=== PATIENT | male | born 2000 ===

== ENCOUNTER 2023-10-12 12:43 | Outpatient (AMB) | payer OTHER, SELFPAY ==
--- NOTE | 2023-10-12 12:42 | AM.OFFWIN_ITS ---
Intake Vital Signs 10/12/23 12:57 Height 5 ft 6 in Weight 150 lb BMI 24.2 BP 110/76 Blood Pressure Location Lt brachial Position Sitting Pulse 59 Pulse Source Pulse Oximeter Temp 97.7 F Temp Source Temporal Artery Scan Pulse Oximetry (%) 98 Oxygen Delivery Method Room Air Intake Visit Reasons: EST/ neck/joint eczema(lobby) Intake Note: pt is here today neck and joint eczema started 2 weeks ago Patient Tobacco Use Status: Never used Tobacco Allergies No Known Allergies Allergy (Verified 10/12/23 13:06) Do you need a note to return to daycare/school/sports/work: No HPI HPI Comments History of Present Illness Details 23-year-old male complaining of a infect ed rash since he began jujitsu. He has a history of eczema and feels as though his eczema was exacerbated and then got infected. He has lesions on his neck and bilateral arms. PFSH Social History Patient Tobacco Use Status: Never used Tobacco Review of Systems Const All systems reviewed & are unremarkable except as noted in HPI and below Physical Exam Vital Signs: Last Vital Signs Temp 97.7 F 10/12/23 12:57 Pulse 59 10/12/23 12:57 BP 110/76 10/12/23 12:57 Pulse Ox 98 10/12/23 12:57 Oxygen Delivery Method Room Air 10/12/23 12:57 BMI result Body Mass Index 24.2 Const General: healthy appearing and no acute distress Skin Rashes: rashes noted (posterior neck and bilateral arms) Assessment & Plan Assessment & Plan (1) Eczema: Code(s): L30.9 - Dermatitis, unspecified Plan: Antibiotic was ordered to control the MRSA and he requested prednisone for his eczema. He will follow up with his PCP (2) MRSA (methicillin resistant Staphylococcus aureus): Code(s): A49.02 - Methicillin resistant Staphylococcus aureus infection, unspecified site Plan: see plan Plan see plan Medications: New prednisone prednisone 5 mg: take 8 tablets (40 mg) on Day 1; 7 tablets (35 mg) on Day 2; then decrease by 1 tablet every day until finished PO 36 ea 0RF doxycycline hyclate 100 mg PO BID 7 days 14 caps 0RF Coding Level of Care Code Est Pt Level 3 (62198) Diagnoses Eczema L30.9 MRSA (methicillin resistant Staphylococcus aureus) A49.02
[2023-10-12 12:57] VITALS: BP 110/76; PULSE 59; TEMP 36.5; O2SAT 98; BMI 24.2
== END 2023-10-12 14:01 | disposition home or self-care (01) ==
PROVIDERS: Visit Provider Physician Assistant Medical
DX: L30.9 Dermatitis, unspecified (principal); A49.02 Methicillin resistant Staphylococcus aureus infection, unspecified site
CPT/HCPCS: 99213

== ENCOUNTER 2023-11-02 11:47 | Outpatient (AMB) | payer OTHER, SELFPAY ==
[2023-11-02 12:39] VITALS: BP 118/76; PULSE 71; TEMP 36.6; O2SAT 98; BMI 24.2
--- NOTE | 2023-11-02 12:39 | MHC.OFFWIV ---
Intake Vital Signs 11/02/23 12:39 Height 5 ft 6 in Weight 150 lb BMI 24.2 BP 118/76 Blood Pressure Location Rt brachial Position Sitting Pulse 71 Pulse Source Pulse Oximeter Temp 97.8 F Temp Source Temporal Artery Scan Pulse Oximetry (%) 98 Intake Visit Reasons: EST/ patient rash(lobby) Intake Note: pt is here for rash on arms Patient Tobacco Use Status: Never used Tobacco Allergies No Known Allergies Allergy (Verified 11/02/23 12:39) Do you need a note to return to daycare/school/sports/work: Yes HPI EST/ patient rash(lobby) HPI Details This is a 23-year-old male patient who presents today with recurring rash on his left arm. He was seen here on 10/11 for similar rash, which at that time was on bilateral arms. This developed after doing [employer]. He was started on prednisone and doxy for MRSA coverage. He states that rash resolved with treatment, however recently recurred several days ago. He states it is painful, occasionally itchy, and blisters are starting to erupt. Denies any fever, chills, sore throat, headache or spreading of rash. [facility] Social History Patient Tobacco Use Status: Never used Tobacco Review of Systems Const All systems reviewed & are unremarkable except as noted in HPI and below Physical Exam Vital Signs: Last Vital Signs Temp 97.8 F 11/02/23 12:39 Pulse 71 11/02/23 12:39 BP 118/76 11/02/23 12:39 Pulse Ox 98 11/02/23 12:39 BMI result Body Mass Index 24.2 Const General: cooperative, healthy appearing and no acute distress Resp Effort & Inspection: normal respiratory effort Skin Other: left arm with erythematous rash, some vesicular areas, mildly warm to touch, no drainage noted Extrem General: Yes capillary refill normal and Yes no clubbing, cyanosis or edema Psych Appearance: grossly normal Mental Status: mental status grossly normal Speech and movement: Normal speech and movement present Assessment & Plan Assessment & Plan (1) Skin rash: Code(s): R21 - Rash and other nonspecific skin eruption Plan: Rash which originated following participating in [employer] has recurred. Patient did well previously on Doxy and Prednisone prior to rash recurrence. I am going to start him on prednisone and also Clindamycin for MRSA coverage given the nature of the rash. We reviewed indications, use, possible side effects of medication. If he does not improve with treatment or if he develops worsening rash or new symptoms, he should return to the clinic for further evaluation. Patient verbalizes understanding and agrees to plan. Medications: New prednisone Take 4 tabs for two days, then take 3 tabs for two days, then take 2 tabs for two days, then take 1 tab for 2 days. 10 mg PO DAILY 20 tabs 0RF R21 - Rash and other nonspecific skin eruption clindamycin HCl 300 mg PO QID 7 days 28 caps 0RF R21 - Rash and other nonspecific skin eruption Coding Level of Care Code Est Pt Level 4 (96635) Diagnoses Skin rash R21
== END 2023-11-02 13:22 | disposition home or self-care (01) ==
PROVIDERS: Visit Provider Nurse Practitioner Family
DX: R21 Rash and other nonspecific skin eruption (principal)
CPT/HCPCS: 99214

== ENCOUNTER 2023-12-06 12:57 | Outpatient (AMB) | payer OTHER, SELFPAY ==
[2023-12-06 13:24] VITALS: BP 120/76; PULSE 68; TEMP 36.9; O2SAT 98; BMI 24.2
--- NOTE | 2023-12-06 13:24 | MHC.OFFWIV ---
Intake Vital Signs 12/06/23 13:24 Height 5 ft 6 in Weight 150 lb BMI 24.2 BP 120/76 Blood Pressure Location Lt brachial Position Sitting Pulse 68 Pulse Source Pulse Oximeter Temp 98.5 F Temp Source Oral Pulse Oximetry (%) 98 Oxygen Delivery Method Room Air Intake Visit Reasons: EP rash bacterial infection body joints Intake Note: pt is here for rash, patient stated he was given antibiotics and has not gotten better Patient Tobacco Use Status: Never used Tobacco Allergies No Known Allergies Allergy (Verified 12/06/23 13:25) Medication List - Last Reconciled 12/06/23 by Courtney Carey, NICOLAS hydrocortisone 2.5% 1 appl topical BID PRN Do you need a note to return to daycare/school/sports/work: No HPI EP rash bacterial infection body joints HPI Details This note is constructed using voice recognition software. While every effort has been made to ensure accuracy, casing in line feeder errors may have been included. 23-year-old male patient presents for recurrent rash. He has been seen 10/12/2023 and 11/02/2023 for the same. He has been treated with prednisone and doxycycline on his 1st visit, and clindamycin and prednisone on his 2nd visit. He notes each visit the medication seems to improve the situation, however it does return. He notes that this occurs when he is getting hot when he is doing jujitsu, and forearms primarily in the areas that he will sweat such as his cubital fossa, posterior cervical region, forehead. It starts as what he describes as a fluid-filled vesicle, which opens, drains clear liquid, is moderately painful, and has little to no itch. He notes that there is discoloration of the skin surrounding the area, and that seems to respond and discolored further each time that he gets hot. He has no current open lesions, denies fever, chills. [facility] Social History Patient Tobacco Use Status: Never used Tobacco Review of Systems Const All systems reviewed & are unremarkable except as noted in HPI and below Physical Exam Vital Signs: Last Vital Signs Temp 98.5 F 12/06/23 13:24 Pulse 68 12/06/23 13:24 BP 120/76 12/06/23 13:24 Pulse Ox 98 07/02/24 13:24 Oxygen Delivery Method Room Air 12/06/23 13:24 BMI result Body Mass Index 24.2 Const General: cooperative, healthy appearing, comfortable, no acute distress and alert Orientation/consciousness: patient oriented x3 Limitations: no limitations Skin Other: 2 mm round ulceration without discharge to right cubital fossa, no surrounding erythema, or warmth. Fossa with hypopigmentation, flat borders, no erythema, warmth, lesions, discharge otherwise. General skin exam: elasticity normal and turgor normal Lesions: lesion noted Neuro General: patient oriented x3 Psych Appearance: grossly normal Mental Status: mental status grossly normal Speech and movement: Normal speech and movement present Affect: normal affect Assessment & Plan Assessment & Plan (1) Tinea versicolor: Code(s): B36.0 - Pityriasis versicolor Plan: Previous notes reviewed. Absence of open lesions or discharge at this time. Appears to have response to heat and sweat, which would be more consistent with a tinea effect. Advised patient to keep the area clean, dry, using topical steroids prior to exercise as well as use of powder to keep the area dry. Advised follow-up with PCP with ongoing or worsening. Plan See above for full details and plan. Medications: New hydrocortisone 2.5% Apply to rash prior to exercise 1 appl topical BID PRN 20 grams 0RF skin irritation Coding Level of Care Code Est Pt Level 4 (19136) Diagnoses Tinea versicolor B36.0 Time Spent (min) 30
== END 2023-12-06 14:06 | disposition home or self-care (01) ==
PROVIDERS: Visit Provider Registered Nurse
DX: B36.0 Pityriasis versicolor (principal)
CPT/HCPCS: 99214

== ENCOUNTER 2024-02-14 11:08 | Outpatient (AMB) | payer OTHER, SELFPAY ==
--- NOTE | 2024-02-14 11:57 | MHC.OFFWIV ---
Intake Vital Signs 02/14/24 11:58 Height 5 ft 6 in Weight 144 lb BMI 23.2 BP 108/78 Blood Pressure Location Rt brachial Position Sitting Pulse 53 Pulse Source Pulse Oximeter Temp 98.1 F Temp Source Oral Pulse Oximetry (%) 97 Oxygen Delivery Method Room Air Intake Visit Reasons: EP eczema flair up Intake Note: pt c/o eczema flair. Started 5 weeks ago Patient Tobacco Use Status: Never used Tobacco Allergies acetaminophen [From Percocet] Allergy (Intermediate, Verified 02/14/24 12:02) Hives oxycodone [From Percocet] Allergy (Intermediate, Verified 02/14/24 12:02) Hives Medication List - Last Reconciled 02/14/24 by Chandana De Anda MD betamethasone dipropionate 0.05% 1 appl topical DAILY hydrocortisone 2.5% 1 appl topical BID PRN prednisone 10 mg PO DAILY 5 days Do you need a note to return to daycare/school/sports/work: No HPI EP eczema flair up HPI Details Patient is 23-year-old male With longstanding history of eczema Currently using moisturizers and [id number] hydrocortisone cream Patient says that eczema is flaring up and he needs more than that Patient have eczema in the back of his upper body lower extremities and upper extremities I am treating him with prednisone 10 mg for 5 days to control it And then betamethasone cream at night for a week and then every other night and then 2 times a week as needed PFSH Social History Patient Tobacco Use Status: Never used Tobacco Review of Systems Const All systems reviewed & are unremarkable except as noted in HPI and below Physical Exam Vital Signs: Last Vital Signs Temp 98.1 F 02/14/24 11:58 Pulse 53 02/14/24 11:58 BP 108/78 02/14/24 11:58 Pulse Ox 97 02/14/24 11:58 Oxygen Delivery Method Room Air 02/14/24 11:58 BMI result Body Mass Index 23.2 Const General: no acute distress Orientation/consciousness: patient oriented x3 Eyes General: appearance normal, both eyes and all related structures Resp Effort & Inspection: normal respiratory effort and able to speak in complete sentences Skin Other: Eczematous rash upper back cubital upper extremity and lower extremity as well Neuro General: patient oriented x3 Psych Mental Status: mental status grossly normal Assessment & Plan Assessment & Plan (1) Eczema: Code(s): L30.9 - Dermatitis, unspecified Qualifiers: Eczema type: intrinsic Qualified Code(s): L20.84 - Intrinsic (allergic) eczema Plan Patient is 23-year-old male With longstanding history of eczema Currently using moisturizers and [id number] hydrocortisone cream Patient says that eczema is flaring up and he needs more than that Patient have eczema in the back of his upper body lower extremities and upper extremities I am treating him with prednisone 10 mg for 5 days to control it And then betamethasone cream at night for a week and then every other night and then 2 times a week as needed Medications: New betamethasone dipropionate 0.05% 1 appl topical DAILY 45 grams 0RF prednisone 10 mg PO DAILY 5 tabs 0RF 5 days Coding Level of Care Code Est Pt Level 3 (71943) Diagnoses Intrinsic eczema L20.84 Eczema type: intrinsic
[2024-02-14 11:58] VITALS: BP 108/78; PULSE 53; TEMP 36.7; O2SAT 97; BMI 23.2
== END 2024-02-14 12:08 | disposition home or self-care (01) ==
PROVIDERS: Visit Provider Internal Medicine
DX: L20.84 Intrinsic (allergic) eczema (principal)
CPT/HCPCS: 99213

== ENCOUNTER 2024-05-25 13:15 | Outpatient (AMB) | payer OTHER, SELFPAY ==
--- NOTE | 2024-05-25 13:38 | MHC.OFFWIV ---
Intake Vital Signs 05/25/24 13:43 Weight 151 lb BP 120/78 Blood Pressure Location Rt brachial Position Sitting Pulse 64 Pulse Source Pulse Oximeter Pulse Oximetry (%) 98 Oxygen Delivery Method Room Air Intake Visit Reasons: EP ?abscess on neck Intake Note: Patient here for abscess on neck that has been present since Tuesday. Patient Tobacco Use Status: Never used Tobacco Allergies acetaminophen [From Percocet] Allergy (Intermediate, Verified 05/25/24 13:44) Hives oxycodone [From Percocet] Allergy (Intermediate, Verified 05/25/24 13:44) Hives Do you need a note to return to daycare/school/sports/work: No HPI HPI Comments History of Present Illness Details Pt presents with a few days of abscess to posterior neck Has had in past and required drainage He said minimal drainage from this one No medicine aside from topical antibiotic used 09/13 ache, worse with palpation No fever, chills No other complaints PFSH Social History Patient Tobacco Use Status: Never used Tobacco Review of Systems Const Denies chills, Denies fever(s), Denies headache(s) and Denies weakness ENT Denies headache(s), Reports neck pain (ache where abscess/lesion is) and Denies sore throat Musc Reports neck pain (ache where abscess/lesion is) and Denies tingling Skin/Breast Reports lesions (posterior middle of neck) and Reports skin pain Neuro Denies headache(s), Denies tingling and Denies weakness Physical Exam Vital Signs: Last Vital Signs Pulse 64 05/25/24 13:43 BP 120/78 05/25/24 13:43 Pulse Ox 98 05/25/24 13:43 Oxygen Delivery Method Room Air 05/25/24 13:43 General: Non-toxic, NAD. Speaking full sentences. Skin: Warm dry throughout Neck: midline neck near C4/C5 level he has small 0.1-0.2mm pustule with area of 1cm x 0.5cm region under. Slight ttp. No fluctuance. No skin erythema. Eye: EOMI Respiratory: No respiratory distress Cardiac: RRR. No murmur MSK: Full ROM extremities. Neurology: Alert. No aphasia or facial droop. Gait without abnormality Psych: Good mood and affect Assessment & Plan Assessment & Plan (1) Cellulitis: Code(s): L03.90 - Cellulitis, unspecified Qualifiers: Site of cellulitis: neck Qualified Code(s): L03.221 - Cellulitis of neck Plan: Patient seen and evaluated. No drainable abscess at this time Bactrim with food (avoid alcohol) Warm compress QUID Go to ED if any stiff neck, fever, increased pain, difficulty swallowing etc Patient gave verbal understanding and had no additional questions or concerns at time of discharge All questions answered Medications: New sulfamethoxazole-trimethoprim 800-160 mg (Bactrim DS) 1 tab PO BID 14 tabs 0RF Coding Level of Care Code Est Pt Level 3 (20816) Diagnoses Cellulitis of neck L03.221 Site of cellulitis: neck
[2024-05-25 13:43] VITALS: BP 120/78; PULSE 64; O2SAT 98
== END 2024-05-25 13:58 | disposition home or self-care (01) ==
PROVIDERS: Visit Provider Physician Assistant
DX: L03.221 Cellulitis of neck (principal)

== ENCOUNTER 2024-12-03 15:39 | Outpatient (AMB) | payer OTHER, SELFPAY ==
--- OUTSIDE RECORDS SUMMARY | 2024-12-03 15:43 | XMS_ITS | Clinical Summary ---
Author Organization [facility] Address [address] [place] [address] Phone Care Team Providers Care Hvac Installer Name Role Phone Physician, No Pcp Primary Care Provider Unavaila ble Allergies Active Allergy Reactions Criticality Noted Date Comments Oxycodone-Acetaminophen Hives 07/28/2024 Medications methocarbamoL (ROBAXIN) 750 mg tablet Take 1 tablet (750 mg total) by mouth 4 (four) times a day. 12 each 07/28/2024 Active Active Problems No known active problems Social History Tobacco Use Types Packs/Day Years Used Date Smoking Tobacco: Never Assessed Sex and Gender Information Value Date Recorded Sex Assigned at Male 07/28/2024 5:05 PM EST Legal Sex Male 12:19 AM EST Gender Identity Male 07/28/2024 5:05 PM EST Sexual Orientation Straight 07/28/2024 5: 05 PM EST Obstetrics History Last Filed Vital Signs Vital Sign Reading Time Taken Comments Blood Pressure 128/71 07/28/2024 12:51 PM EST Pulse 63 07/28/2024 12:51 PM EST Temperature 36.6 C (97.9 F) 07/28/2024 12:51 PM EST Respiratory Rate 18 07/28/2024 12:51 PM EST Oxygen Saturation 99% 07/28/2024 12:51 PM EST Inhaled Oxygen Concentration - - Weight 65.8 kg (145 lb) 07/28/2024 12:51 PM EST Height 167.6 cm (5' 6 ) 07/28/2024 12:51 PM EST Body Mass Index 23.4 07/28/2024 12:51 PM EST Plan of Treatment Health Maintenance Due Date Last Done Comments HPV Vaccines (1 - Male 3-dos e series) 2017 Meningococcal B Vaccine (1 o f 2 - Standard) 2018 DTaP,Tdap,and Td Vaccines (1 - Tdap) 2021 Hepatitis B Vaccines (1 of 3 - 19+ 3-dose series) 2021 Cholesterol Screening (Lipid Panel) 05/09/2022 Depression Screening 05/09/2022 HIV Screening 05/09/2022 Hepatitis C Screening 05/09/2022 Social Influencers of Health Screening 05/09/2022 COVID-19 Vaccine (1 - 2023-2 5 season) 2024 Influenza Vaccine (Season Ended) 2025 HIB Vaccines Aged Out No longer eligi ble based on patient's age to complete this topic Hepatitis A Vaccines Aged Out No long er eligible based on patient's age to complete this topic IPV Vaccines Aged Out No longer eligi ble based on patient's age to complete this topic MMR Vaccines Aged Out No longer eligi ble based on patient's age to complete this topic Meningococcal ACWY Vaccine Aged Out N o longer eligible based on patient's age to complete this topic Pneumococcal Vaccine: Pediat rics (0 to 5 Years) and At-Risk Patients (6 to 64 Years) Aged Out No longer eligible b ased on patient's age to complete this topic RSV Immunization Patients Un miah 20 months Aged Out No longer eligible b ased on patient's age to complete this topic Varicella Vaccines Aged Out No longer eligible based on patient's age to complete this topic Insurance [employer] Care Teams Hvac Installer Relationship Specialty Start Date End Date Physician, No Pcp PCP - General 07/28/24
--- OUTSIDE RECORDS SUMMARY | 2024-12-03 15:43 | XMS_ITS | Patient Health Record ---
Author Organization [facility] Address [address] [place] [address] Care Team Providers Care Packaging Manager Name Role Phone DEBORAHANA MCGRATH Unavailable [phone] Allergies Allergen (clinical drug ingredient) Drug/Non Drug Allergy documented on EMR Reaction Allergy Type Onset Date Status acetaminophen / oxycodone Percocet rash Drug Allergy Active Reason For Referral No Information Medications Medication SIG (Take, Route, Fr equency, Duration) Notes Start Date End Date Status predniSONE 10 MG 1 tablet Orally Once a day Active Problems Problem Type SNOMED Code ICD Code Onset Dates Problem Status W/U Status Risk Notes Problem Vitamin D deficiency (30128080) Vitamin D deficiency, unspecified (E55.9) Active confirmed Problem Acquired hypothyroidism (694178330) Acquired hypothyroidism (E03.9) Active confirmed Problem Memory loss (R41.3) Active confirmed Problem Dyslipidemia (306621536) Dyslipidemia (E78.5) Active confirmed Encounters Encounter Location Date Provider Diagnosis [facility] [address] [facility] [address] [place] [address] 02/08/2024 ANA NEWMAN Brain fog R41.89 ; Annual physical exam Z00.00 ; Memory loss R41.3 and Vitamin D deficiency, unspecified E55.9 [facility] [address] [facility] [address] [place] [address] 07/30/2024 ANA NEWMAN Assessments Encounter Date Diagnosis (ICD Code) Assessment Notes Treatment Notes Treatment Clinical Notes Section Notes 02/08/2024 Annual physical exam (ICD-10 - Z00.00) Acute Concerns/Problem List: 02/08/2024 Neuro workup thus far unremarkable Of note, some information is being carried forward from prior records for informational purposes only and is being cited so that efficiency, safety and quality of the patient's care is not compromised This note was prepared using voice recognition software and direct typing Please excuse inadvertent parachute crown sewer or typing errors, or uncorrected word substitutions Although every attempt has been made by the provider to proofread this document, occasional misspellings and typographical errors may still be present Due to the previous pandemic, and the use of personal protective equipment (PPE) This may decrease voice recognition accuracy Inadvertent parachute crown sewer errors may occur 02/08/2024 Brain fog (ICD-10 - R41.89) Acute Concerns/Problem List: 02/08/2024 Neuro workup thus far unremarkable Of note, some information is being carried forward from prior records for informational purposes only and is being cited so that efficiency, safety and quality of the patient's care is not compromised This note was prepared using voice recognition software and direct typing Please excuse inadvertent parachute crown sewer or typing errors, or uncorrected word substitutions Although every attempt has been made by the provider to proofread this document, occasional misspellings and typographical errors may still be present Due to the previous pandemic, and the use of personal protective equipment (PPE) This may decrease voice recognition accuracy Inadvertent parachute crown sewer errors may occur 02/08/2024 Memory loss (ICD-10 [...] software and direct typing Please excuse inadvertent parachute crown sewer or typing errors, or uncorrected word substitutions Although every attempt has been made by the provider to proofread this document, occasional misspellings and typographical errors may still be present Due to the previous pandemic, and the use of personal protective equipment (PPE) This may decrease voice recognition accuracy Inadvertent parachute crown sewer errors may occur 02/08/2024 Vitamin D deficiency, [...] software and direct typing Please excuse inadvertent parachute crown sewer or typing errors, or uncorrected word substitutions Although every attempt has been made by the provider to proofread this document, occasional misspellings and typographical errors may still be present Due to the previous pandemic, and the use of personal protective equipment (PPE) This may decrease voice recognition accuracy Inadvertent parachute crown sewer errors may occur Plan Of Treatment Pending Test Test Name Order Date RPR 11/21/2023 MRI : Brain without Contrast 11/21/2023 CBC (COMPLETE BLOOD COUNT) WITH DIFF COMPREHENSIVE METABOLIC PANEL 11/21/2023 LIPID PANEL 11/21/2023 TSH 11/21/2023 VITAMIN B12 11/21/2023 METHYLMALONIC ACID 11/21/2023 VITAMIN D, 1,25 DIHYDROXY LC/MS/MS 11/20 Insurance Providers Payer Name Payer Address Payer Phone Subscriber Number Group Number Insured Name Patient Relationship to Insured Coverage Start Date Coverage End Date Jocelyn GAMBLE [address] [place] [address] [id number] Jefry Silverio Self - patient is the insured Medical (General) History Medical History History ICD Code atopic dermatitis Surgical History Surgery Date(Month/Year) neck abscess 2018
[2024-12-03 15:44] VITALS: BP 110/66; PULSE 70; TEMP 36.7; O2SAT 98; BMI 24.6
--- NOTE | 2024-12-03 15:44 | MHC.OFFWIV ---
Intake Vital Signs 12/03/24 15:44 Height 5 ft 6 in Weight 152 lb 8 oz BMI 24.6 BP 110/66 Blood Pressure Location Lt brachial Position Sitting Pulse 70 Pulse Source Pulse Oximeter Temp 98.1 F Temp Source Oral Pulse Oximetry (%) 98 Oxygen Delivery Method Room Air Intake Visit Reasons: EP-?pink eyes Intake Note: pt presents with gunk in bilateral eyes that is worse in the mornings x2 weeks. denies burning/scratching/pain Patient Tobacco Use Status: Never used Tobacco Allergies acetaminophen (From Percocet) Allergy (Intermediate, Verified 12/03/24 15:49) Hives oxycodone (From Percocet) Allergy (Intermediate, Verified 12/03/24 15:49) Hives Do you need a note to return to daycare/school/sports/work: No HPI HPI Comments History of Present Illness Details History of Present Illness - The patient is a 24-year-old male presenting with symptoms of conjunctivitis. - Reports waking up with itchy and crusty eyes, with crusting on both eyes. - Symptoms include a gritty sensation in the eyes and occasional blurry vision. - Denies wearing contact lenses. - Mild upper respiratory symptoms, including a runny nose and congestion, are present. - He denies ESPAÑ[place], dizziness, cough, sore throat, ear pain, sick contacts, or travel. Physical Exam General: Cooperative, healthy appearing, comfortable, no acute distress and well developed Ears: Hearing grossly normal bilaterally Nose: Normal external nose present. Normal turbinates. Face and sinus: Normal facial exam. No TTP of sinuses bilaterally. Eyes: Appearance abnormal, both eyes with crusting noted. Sclera is pink on the left, white on the right. Conjunctiva is pink, no FB noted. PERRLA bilaterally. Neck: Normal visual inspection and full ROM. No lymphadenopathy noted. Respiratory: Normal respiratory effort and able to speak in complete sentences. Clear to auscultation bilaterally. No w/r/r noted. Cardiovascular: Regular rate and rhythm. Normal S1 and S2. No M/R/G noted. Patient was informed and verbally consented to the use of an ambient scribe for clinic note documentation during this visit. [facility] Social History Patient Tobacco Use Status: Never used Tobacco Review of Systems Const All systems reviewed & are unremarkable except as noted in HPI and below Physical Exam Vital Signs: Last Vital Signs Temp 98.1 F 12/03/24 15:44 Pulse 70 12/03/24 15:44 BP 110/66 12/03/24 15:44 Pulse Ox 98 12/03/24 15:44 Oxygen Delivery Method Room Air 12/03/24 15:44 BMI result Body Mass Index 24.6 Assessment & Plan Assessment & Plan (1) Conjunctivitis: Code(s): H10.9 - Unspecified conjunctivitis Qualifiers: Conjunctivitis type: acute Acute conjunctivitis type: unspecified Laterality: bilateral Qualified Code(s): H10.33 - Unspecified acute conjunctivitis, bilateral Plan Most likely conjunctivitis Plan - Ophthalmic drops prescribed for administration four times daily for four days to both eyes. - Patient advised to wash pillowcases and maintain hand hygiene to prevent infection spread. - follow up with eye doctor Medications: New polymyxin B sulf-trimethoprim 10,000 unit- 1 mg/mL while awake 1 drp ophthalmic-Right QID 10 mL 0RF 5 days Coding Level of Care Code Est Pt Level 3 (41302) Diagnoses Acute conjunctivitis of both eyes, unspecified acute conjunctivitis type H10.33 Conjunctivitis type: acute Acute conjunctivitis type: unspecified Laterality: bilateral
== END 2024-12-03 16:02 | disposition home or self-care (01) ==
PROVIDERS: Visit Provider Physician Assistant Medical
DX: H10.33 Unspecified acute conjunctivitis, bilateral (principal)

== ENCOUNTER → 2024-12-03 15:39 | Outpatient (BNVA) | payer OTHER, SELFPAY | DX: Z13.89 Encounter for screening for other disorder (principal) ==

== ENCOUNTER 2024-12-11 15:26 | Outpatient (AMB) | payer OTHER, SELFPAY ==
[2024-12-11 15:32] VITALS: BP 114/52; PULSE 69; TEMP 36.8; O2SAT 99; BMI 24.5
--- NOTE | 2024-12-11 15:32 | MHC.OFFWIV ---
Intake Vital Signs 12/11/24 15:32 Height 5 ft 6 in Weight 152 lb BMI 24.5 BP 114/52 L Blood Pressure Location Rt brachial Position Sitting Pulse 69 Pulse Source Pulse Oximeter Temp 98.3 F Temp Source Oral Pulse Oximetry (%) 99 Oxygen Delivery Method Room Air Intake Visit Reasons: EP [place] eye did not go away Intake Note: presents with unresolved pink eye bilateral eyes Patient Tobacco Use Status: Never used Tobacco Allergies acetaminophen (From Percocet) Allergy (Intermediate, Verified 12/11/24 15:34) Hives oxycodone (From Percocet) Allergy (Intermediate, Verified 12/11/24 15:34) Hives Do you need a note to return to daycare/school/sports/work: No HPI HPI Comments History of Present Illness Details History of Present Illness - The patient is a 24-year-old male presenting with persistent eye infection. - The eye infection did not resolve with initial antibiotic treatment, with symptoms of gritty sensation, discharge, and crusting in the morning. - There is a history of using antibiotic eye drops without significant improvement, and mild cold symptoms are present. - The patient has been using Benadryl for symptomatic relief, suggesting possible allergic conjunctivitis. - He has no fever, chills CP, SOB, sore throat, or cough. - He has glasses and does wear contacts. Physical Exam General: Cooperative, healthy appearing, comfortable, no acute distress and well developed Orientation: Patient oriented x3 Limitations: No limitations Head: Normal to inspection Ears: Hearing grossly normal bilaterally Nose: Normal external nose present Face and sinus: Normal facial exam Eyes: Sclerae is pink, conjunctivae is pink bilaterally. Tearing noted. No FB noted. PERRLA noted, pupils are 2 mm bilaterally. EOMI noted. Neck: Normal visual inspection and Yes full ROM Respiratory: Normal respiratory effort and able to speak in complete sentences. Clear to auscultation bilaterally Cardiovascular: Regular rate and rhythm. Normal S1 and S2 Patient was informed and verbally consented to the use of an ambient scribe for clinic note documentation during this visit. [facility] Social History Patient Tobacco Use Status: Never used Tobacco Review of Systems Const All systems reviewed & are unremarkable except as noted in HPI and below Physical Exam Vital Signs: Last Vital Signs Temp 98.3 F 12/11/24 15:32 Pulse 69 12/11/24 15:32 BP 114/52 L 12/11/24 15:32 Pulse Ox 99 12/11/24 15:32 Oxygen Delivery Method Room Air 12/11/24 15:32 BMI result Body Mass Index 24.5 Assessment & Plan Assessment & Plan (1) Conjunctivitis: Code(s): H10.9 - Unspecified conjunctivitis Qualifiers: Conjunctivitis type: acute Acute conjunctivitis type: unspecified Laterality: bilateral Qualified Code(s): H10.33 - Unspecified acute conjunctivitis, bilateral Plan Most likely bacterial vs allergic vs viral Plan - Switch to a different medication for the eye infection due to lack of improvement with current treatment. - Consider starting an antihistamine like cetirizine for potential allergic conjunctivitis. - Continue monitoring for any changes in symptoms and adjust treatment as necessary. - follow up with his eye doctor Medications: New cetirizine (All Day Allergy (cetirizine)) 10 mg PO DAILY 30 tabs 0RF erythromycin Apply to left eye 4 times a day while awake 0.5 inches ophthalmic (eye) QID 3.5 grams 0RF Coding Level of Care Code Est Pt Level 3 (50452) Diagnoses Acute conjunctivitis of both eyes, unspecified acute conjunctivitis type H10.33 Conjunctivitis type: acute Acute conjunctivitis type: unspecified Laterality: bilateral
--- OUTSIDE RECORDS SUMMARY | 2024-12-11 15:55 | XMS_ITS | Clinical Summary ---
Author Organization [facility] Address [address] [place] [address] Phone Care Team Providers Care Formula Technician Name Role Phone Physician, No Pcp Primary [...] - 2023-2 5 season) 2024 Influenza Vaccine (#1) 2025 HIB Vaccines Aged Out No longer [...] 5 Years) and At-Risk Patients (6 to 49 Years) Aged Out No longer eligible b ased on patient's age to complete this topic RSV Immunization Patients Un miah 20 months Aged Out No longer eligible b ased on patient's age to complete this topic Varicella Vaccines Aged Out No longer eligible based on patient's age to complete this topic Insurance [employer] Care Teams Formula Technician Relationship Specialty Start Date End Date Physician, No Pcp PCP - General 07/28/24
--- OUTSIDE RECORDS SUMMARY | 2024-12-11 15:55 | XMS_ITS | Patient Health Record ---
Author Organization [facility] Address [address] [place] [address] Care Team Providers Care Manager Drilling Name Role Phone DEBORAHANA MCGRATH Unavailable [phone] Allergies Allergen (clinical drug ingredient) Drug/Non Drug [...] W/U Status Risk Notes Problem Vitamin D deficiency, unspecified (E55.9) Active confirmed Problem Acquired hypothyroidism (338490670) Acquired hypothyroidism (E03.9) Active confirmed Problem Memory loss (23526872) Memory loss (R41.3) Active confirmed Problem Dyslipidemia (944276110) Dyslipidemia (E78.5) Active confirmed Encounters Encounter Location Date Provider Diagnosis [facility] [address] [facility] [address] [place] [address] 02/08/2024 ANA NEWMAN Brain fog R41.89 ; Annual physical exam Z00.00 ; Memory loss R41.3 and Vitamin D deficiency, unspecified E55.9 [facility] [address] [facility] [address] [place] [address] 07/30/2024 ANA NEWMAN Assessments Encounter Date Diagnosis [...] software and direct typing Please excuse inadvertent molecular biology scientist or typing errors, or uncorrected word substitutions Although every attempt has been made by the provider to proofread this document, occasional misspellings and typographical errors may still be present Due to the previous pandemic, and the use of personal protective equipment (PPE) This may decrease voice recognition accuracy Inadvertent molecular biology scientist errors may occur 02/08/2024 Brain fog (ICD-10 [...] software and direct typing Please excuse inadvertent molecular biology scientist or typing errors, or uncorrected word substitutions Although every attempt has been made by the provider to proofread this document, occasional misspellings and typographical errors may still be present Due to the previous pandemic, and the use of personal protective equipment (PPE) This may decrease voice recognition accuracy Inadvertent molecular biology scientist errors may occur 02/08/2024 Memory loss (ICD-10 [...] software and direct typing Please excuse inadvertent molecular biology scientist or typing errors, or uncorrected word substitutions Although every attempt has been made by the provider to proofread this document, occasional misspellings and typographical errors may still be present Due to the previous pandemic, and the use of personal protective equipment (PPE) This may decrease voice recognition accuracy Inadvertent molecular biology scientist errors may occur 02/08/2024 Vitamin D deficiency, [...] software and direct typing Please excuse inadvertent molecular biology scientist or typing errors, or uncorrected word substitutions Although every attempt has been made by the provider to proofread this document, occasional misspellings and typographical errors may still be present Due to the previous pandemic, and the use of personal protective equipment (PPE) This may decrease voice recognition accuracy Inadvertent molecular biology scientist errors may occur Plan Of Treatment Pending [...] Date Coverage End Date Jocelyn GAMBLE [address] [place] [address] [id number] Jefry Silverio Self - patient is the insured Medical (General) History Medical History History ICD Code atopic dermatitis Surgical History Surgery Date(Month/Year) neck abscess 2018
== END 2024-12-11 16:39 | disposition home or self-care (01) ==
PROVIDERS: Visit Provider Physician Assistant Medical
DX: H10.33 Unspecified acute conjunctivitis, bilateral (principal)

== ENCOUNTER 2025-03-07 15:50 | Outpatient (AMB) | payer OTHER, SELFPAY ==
--- OUTSIDE RECORDS SUMMARY | 2024-02-08 11:15 | XMS_ITS ---
Author Organization [facility] [address] Address [address] [place] [address] Care Team Providers Care [employer]pent[employer] Helper Name Role Phone ANA NEWMAN Unavailable [phone] Medications Medication SIG (Take, Route, Fr equency, Duration) Notes Start Date End Date Status predniSONE 10 MG 1 tablet Orally Once a day Active Encounters Encounter Location Date Provider Diagnosis [facility] [address] [address] 02/08/2024 ANA TRENT Brain fog R41.89 ; Annual physical exam Z00.00 ; Memory loss R41.3 and Vitamin D deficiency, unspecified E55.9 Assessments Encounter Date Diagnosis (ICD Code) Assessment Notes Treatment Notes Treatment Clinical Notes Section Notes 02/08/2024 Brain fog (ICD-10 - R41.89) Acute Concerns/Problem List: 02/08/2024 Neuro workup thus far unremarkable Of note, some information is being carried forward from prior records for informational purposes only and is being cited so that efficiency, safety and quality of the patient's care is not compromised This note was prepared using voice recognition software and direct typing Please excuse inadvertent master sheet clerk or typing errors, or uncorrected word substitutions Although every attempt has been made by the provider to proofread this document, occasional misspellings and typographical errors may still be present Due to the previous pandemic, and the use of personal protective equipment (PPE) This may decrease voice recognition accuracy Inadvertent master sheet clerk errors may occur 02/08/2024 Annual physical exam (ICD-10 - Z00.00) Acute Concerns/Problem List: 02/08/2024 Neuro workup thus far unremarkable Of note, some information is being carried forward from prior records for informational purposes only and is being cited so that efficiency, safety and quality of the patient's care is not compromised This note was prepared using voice recognition software and direct typing Please excuse inadvertent master sheet clerk or typing errors, or uncorrected word substitutions Although every attempt has been made by the provider to proofread this document, occasional misspellings and typographical errors may still be present Due to the previous pandemic, and the use of personal protective equipment (PPE) This may decrease voice recognition accuracy Inadvertent master sheet clerk errors may occur 02/08/2024 Memory loss (ICD-10 - R41.3) Acute Concerns/Problem List: 02/08/2024 Neuro workup thus far unremarkable Of note, some information is being carried forward from prior records for informational purposes only and is being cited so that efficiency, safety and quality of the patient's care is not compromised This note was prepared using voice recognition software and direct typing Please excuse inadvertent master sheet clerk or typing errors, or uncorrected word substitutions Although every attempt has been made by the provider to proofread this document, occasional misspellings and typographical errors may still be present Due to the previous pandemic, and the use of personal protective equipment (PPE) This may decrease voice recognition accuracy Inadvertent master sheet clerk errors may occur 02/08/2024 Vitamin D deficiency, unspecified (ICD-10 - E55.9) Acute Concerns/Problem List: 02/08/2024 Neuro workup thus far unremarkable Of note, some information is being carried forward from prior records for informational purposes only and is being cited so that efficiency, safety and quality of the patient's care is not compromised This note was prepared using voice recognition software and direct typing Please excuse inadvertent master sheet clerk or typing errors, or uncorrected word substitutions Although every attempt has been made by the provider to proofread this document, occasional misspellings and typographical errors may still be present Due to the previous pandemic, and the use of personal protective equipment (PPE) This may decrease voice recognition accuracy Inadvertent master sheet clerk errors may occur Plan Of Treatment No Information Progress Notes * Jefry DE LA TORREDOB:2000 (24 yo M)Acc No.[id number]:02/08/2024 CPE Patient: Jefry GRIGGS Provider: Inocencio NEWMAN NP :2000 A ge:23 Y S ex:Male Date:02/08/2024 Address:[address] [place] [address] Subjective: * Chief Complaints: * * HPI: C onstitutional: Patient is here today for Annual CPE Full past medical history, social history, family history, allergies and current medications were reviewed and updated. New patient packet was reviewed which includes PHQ 9 scale for depression screening, social history, family history, medical history, surgical history They are coming to us from previous practice, Pediatrics, Dr Bowden Acute Concerns/Problem List: 02/08/2024 2 yr hx of memory loss/brain fog maternal hx of dementia/vascular dementia No recent COVID illnesses or post-COVID syndrome MRI of the brain without in November 2023 Normal MRI appearance of the brain denies illciit drug use, THC use or other recr use MSE, MOCA non diagnostic Comprehensive labs November 2023 CBC is stable Renal function electrolytes and LFTs are stable Total cholesterol 160, triglycerides 56, HDL 61, LDL 88 Vitamin B12 is 533 TSH 4.8 Vitamin D 67 Methylmalonic acid normal Treponemal antibody negative Health Maintenance/Social Hx not sexually active just finished trade school, [employer] COVID MRNA x 2 Flu 2022 NO TDAP UTD. * ROS: A ll Other Systems: Review of Systems (ROS) A ll others negative except those mentioned in HPI. * Medical History: * Medications: T aking predniSONE 10 MG Tablet 1 tablet Orally Once a day Objective: * Vitals: * Examination: G eneral Examination: GENERAL APPEARANCE: i n no acute distress, well developed, well nourished. H EAD: n ormocephalic, atraumatic. E YES: p upils equal, round, reactive to light and accommodation. E ARS: n ormal. O RAL CAVITY: m ucosa moist. T HROAT: c lear. N VIVI/THYROID: n vivi supple, full range of motion, no cervical lymphadenopathy. S KIN: n o suspicious lesions, warm and dry. H EART: n o murmurs, regular rate and rhythm, S1, S2 normal. L UNGS: c lear to auscultation bilaterally. A BDOMEN: n ormal, bowel sounds present, soft, nontender, nondistended. E XTREMITIES: n o clubbing, cyanosis, or edema. N EUROLOGIC: n onfocal, motor strength normal upper and lower extremities, sensory exam intact. Assessment: * Assessment: 1. A nnual physical exam - Z00.00 (Primary) 2 . B rain fog - R41.89 ? 3 . M sawyer loss - R41.3 4 . V itamin D deficiency, unspecified - E55.9 Acute Concerns/Problem List: 02/08/2024 Neuro workup thus far unremarkable Of note, some information is being carried forward from prior records for informational purposes only and is being cited so that efficiency, safety and quality of the patient's care is not compromised This note was prepared using voice recognition software and direct typing Please excuse inadvertent master sheet clerk or typing errors, or uncorrected word substitutions Although every attempt has been made by the provider to proofread this document, occasional misspellings and typographical errors may still be present Due to the previous pandemic, and the use of personal protective equipment (PPE) This may decrease voice recognition accuracy Inadvertent master sheet clerk errors may occur. Plan: * Treatment: * Procedure Codes: 9 9199 NO SHOW OFFICE VISIT * Images: Billing Information: * Visit Code: * Procedure Codes: 87381 NO SHOW OFFICE VISIT. Care Plan Details* * Electronic signature of ALLAN NEWMAN on 03/07/2025 at 04:52 PM EDT Sign off status: Pending * Provider: Inocencio NEWMAN NP Date: 0 02/08/2024 Generated for Maribel coronado/Davide/Colleen on: 1 04:52 PM EDT History and Physical Notes * HPI (History of Present Illness) Category Sub-Category Detail Notes Category Not es Constitutional Patient is here today for Annual CPE Full past medical history, social history, family history, allergies and current medications were reviewed and updated. New patient packet was reviewed which includes PHQ 9 scale for depression screening, social history, family history, medical history, surgical history They are coming to us from previous practice, Pediatrics, Dr Bowden Acute Concerns/Problem List: 02/08/2024 2 yr hx of memory loss/brain fog maternal hx of dementia/vascular dementia No recent COVID illnesses or post-COVID syndrome MRI of the brain without in November 2023 Normal MRI appearance of the brain denies illciit drug use, THC use or other recr use MSE, MOCA non diagnostic Comprehensive labs November 2023 CBC is stable Renal function electrolytes and LFTs are stable Total cholesterol 160, triglycerides 56, HDL 61, LDL 88 Vitamin B12 is 533 TSH 4.8 Vitamin D 67 Methylmalonic acid normal Treponemal antibody negative Health Maintenance/Social Hx not sexually active just finished trade school, [employer] COVID MRNA x 2 Flu 2022 NO TDAP UTD Examination Category Sub-Category Detail Notes Category Not es General Examination GENERAL APPEARANCE: in no ac marshall distress, well developed, well nourished HEAD: normocephalic, atrau matic EYES: pupils equal, round, reactive to light and accommodation EARS: normal THROAT: clear NECK/THYROID: neck supple, full ra nge of motion, no cervical lymphadenopathy HEART: no murmurs, regular rate and rhythm, S1, S2 normal LUNGS: clear to auscultatio n bilaterally ABDOMEN: normal, bowel sounds present, soft, nontender, nondistended NEUROLOGIC: nonfocal, motor stre ngth normal upper and lower extremities, sensory exam intact SKIN: no suspicious lesion s, warm and dry EXTREMITIES: no clubbing, cyanosi s, or edema ORAL CAVITY: mucosa moist
[2025-03-07 15:52] VITALS: BP 126/66; PULSE 64; TEMP 36.7; O2SAT 97; BMI 25.3
--- NOTE | 2025-03-07 15:52 | MHC.OFFWIV ---
Intake Vital Signs 03/07/25 15:52 Height 5 ft 6 in Weight 157 lb BMI 25.3 BP 126/66 Blood Pressure Location Lt brachial Position Sitting Pulse 64 Pulse Source Pulse Oximeter Temp 98.1 F Temp Source Oral Pulse Oximetry (%) 97 Oxygen Delivery Method Room Air Intake Visit Reasons: EP [place] eye still Intake Note: PT presents with non resolving bilateral pink eye, RT > LT Patient Tobacco Use Status: Never used Tobacco Allergies acetaminophen (From Percocet) Allergy (Intermediate, Verified 03/07/25 15:54) Hives oxycodone (From Percocet) Allergy (Intermediate, Verified 03/07/25 15:54) Hives Medication List - Last Reconciled 03/07/25 by Ita Arriola NP cetirizine (All Day Allergy (cetirizine)) 10 mg PO DAILY Do you need a note to return to daycare/school/sports/work: No HPI HPI Comments History of Present Illness Details 24 Male patient who presents to the walk in clinic with c/o Allergic Conjunctivitis for few Months now. He was seen here 2 times (November/December) for similar problem where he was diagnosed with Viral/Allergic conjunctivitis. He was treated twice with Topical Eye Antibiotics with no relief. Pt was seen and evaluated by an Assembly Machine Tool Setter at [facility] who also prescribed an Eye medication with Steroid in it. Pt reports that his symptoms went away completely, but the treatment was for only 5 days. Reports symptoms returned few weeks later. Pt has known Allergies to Animals and he lives with 4 dogs (they Belong to his Parent). He took Cetirizine daily with some relief. [facility] Medical History (Updated 03/07/25 @ 17:06 by Ita Arriola NP) Allergic conjunctivitis and rhinitis Social History Patient Tobacco Use Status: Never used Tobacco Review of Systems Const All systems reviewed & are unremarkable except as noted in HPI and below Physical Exam Vital Signs: Last Vital Signs Temp 98.1 F 03/07/25 15:52 Pulse 64 03/07/25 15:52 BP 126/66 03/07/25 15:52 Pulse Ox 97 03/07/25 15:52 Oxygen Delivery Method Room Air 03/07/25 15:52 BMI result Body Mass Index 25.3 Const General: no acute distress Nutritional Appearance: well nourished Orientation/consciousness: patient oriented x3 Eyes Eyelids: Yes eyelids normal Conjunctivae: conjunctivae normal Pupils: Equal, round and reactive pupils present EOM: EOMs intact bilaterally Direct Ophthalmoscopy: normal light reflex Neuro General: patient oriented x3, gait normal and moves all extremities Cranial nerves: Yes Equal, round and reactive pupils present Psych Speech and movement: Normal speech and movement present Assessment & Plan Assessment & Plan (1) Allergic conjunctivitis and rhinitis: Code(s): H10.10 - Acute atopic conjunctivitis, unspecified eye; J30.9 - Allergic rhinitis, unspecified Qualifiers: Laterality: bilateral Qualified Code(s): H10.13 - Acute atopic conjunctivitis, bilateral; J30.9 - Allergic rhinitis, unspecified Plan: Advised to Call the Eye Doctor's Office for f/u Appointment. Advised to avoid contact with a known Allergy Trigger (Animals). Advised to f/u with his PCP for possible referral to an Corporate Quality Manager. Ordered Cetirizine BID for the next 1 week and see if symptoms resolve. Medications: Refilled cetirizine (All Day Allergy (cetirizine)) 10 mg PO DAILY 90 tabs 0RF H10.10 - Acute atopic conjunctivitis, unspecified eye, J30.9 - Allergic rhinitis, unspecified Coding Level of Care Code Est Pt Level 4 (91084) Diagnoses Allergic conjunctivitis of both eyes and rhinitis H10.13; J30.9 Laterality: bilateral Time Spent (min) 20
--- OUTSIDE RECORDS SUMMARY | 2025-03-07 16:52 | XMS_ITS | Clinical Summary ---
Author Organization [facility] Address [address] [place] [address] Phone Care Team Providers Care Shipping Inspector Name Role Phone Physician, No Pcp Primary [...] series) 2021 Cholesterol Screening (Lipid Panel) 05/09/2022 HIV Screening 05/09/2022 Hepatitis C Screening 05/09/2022 Social Influencers of Health Screening 05/09/2022 Depression Screening 06/06/2024 COVID-19 Vaccine (1 - 2023-2 5 season) 2025 Influenza Vaccine (#1) 2025 RSV Immunization Adult Patie nts (1 - 1-dose 75+ series) 2077 HIB Vaccines Aged Out No longer eligi [...] patient's age to complete this topic Insurance [facility] [employer] Care Teams Shipping Inspector Relationship Specialty Start Date End Date Physician, No Pcp PCP - General 07/28/24
--- OUTSIDE RECORDS SUMMARY | 2025-03-07 16:52 | XMS_ITS | Patient Health Record ---
Author Organization [facility] Address [address] [place] [address] Care Team Providers Care Energy Infrastructure Engineer Name Role Phone ANA NEWMAN Unavailable [phone] Allergies Allergen (clinical drug ingredient) Drug/Non Drug [...] Status Risk Notes Problem Vitamin D deficiency (28101732) Vitamin D deficiency, unspecified (E55.9) Active confirmed Problem Acquired hypothyroidism (447696262) Acquired hypothyroidism (E03.9) Active confirmed Problem Memory loss (35457945) Memory loss (R41.3) Active confirmed Problem Dyslipidemia (445291335) Dyslipidemia (E78.5) Active confirmed Encounters Encounter Location Date Provider Diagnosis [facility] [address] [address] 07/30/2024 ANA NEWMAN Plan Of Treatment Pending Test Test Name [...] Insured Coverage Start Date Coverage End Date [employer] [address] [place]anda fried, [place] [address] [id number] Jean Claude Jefry Self - patient is the insured 1 Medical (General) History Medical History History ICD Code atopic dermatitis Surgical History Surgery Date(Month/Year) neck abscess 2019
== END 2025-03-07 16:23 | disposition home or self-care (01) ==
PROVIDERS: Visit Provider Nurse Practitioner Family
DX: H10.13 Acute atopic conjunctivitis, bilateral (principal); J30.9 Allergic rhinitis, unspecified